=== PATIENT | male | born 1990 | race Caucasian/White ===

== ENCOUNTER 2017-05-12 11:04 | Emergency (ER) | payer MEDICAID ==
[2017-05-12] MEDS ORDERED: ONDANSETRON 4 MG/2 ML VIAL ONE (11:09)
[2017-05-12] MEDS ORDERED: ONDANSETRON 4 MG/2 ML VIAL IVP ONE (11:17)
[2017-05-12] MEDS ORDERED: NS 1,000 ML IV ONE ×2 (11:17→12:48)
[2017-05-12 11:36] VITALS: RESP 16; TEMP 97.7; O2SAT 99
[2017-05-12 12:45] LABS: % IMMATURE GRANULYOCYTES 0.3 % (0.0-1.1); ABSOLUTE IMMATURE GRANULOCYTES 0.04 10^3/uL (0.00-0.10); ADD DIFF? NO; ADD MORPH? NO; ADD SCAN? NO; ATYPICAL LYMPHOCYTE FLAG 10 (0-99); FRAGMENT RBC FLAG 0 (0-99); HEMATOCRIT 48.3 % (40.0-51.0); HEMOGLOBIN 16.8 g/dL (13.7-17.5); LEFT SHIFT FLG 0 (0-99); LIPEMIA HEMOLYSIS FLAG 90 (0-99); MEAN CELL HEMOGLOBIN 32.4 pg (27.9-34.1); MEAN CELL HEMOGLOBIN CONCENTR. 34.8 g/dL (32.4-36.7); MEAN CELL VOLUME 93.1 fL (81.5-99.8); MEAN PLATELET VOLUME 10.2 fL (8.7-11.7); PLATELET CLUMPS FLAG 10 (0-99); PLATELET COUNT 247 10^3/uL (150-400); RED BLOOD CELL COUNT 5.19 10^6/uL (4.40-6.38); RED CELL DISTRIBUTION WIDTH 13.1 % (11.5-15.2)
--- NOTE | 2017-05-12 12:48 | EDPHY ---
General Narrative: CHIEF COMPLAINT: Vomiting, "pissing out of my ass" HISTORY OF PRESENT ILLNESS: Patient complains of 2 days history of vomiting diarrhea. This started abruptly yesterday. He describes it as " I'm pissing out of my ass." This is a clear, watery diarrhea. Multiple episodes per day. The vomiting has improved just prior to arrival. No chest pain or shortness of breath. Does have mild abdominal discomfort. No fever chills. No bloody emesis or stools. No trauma or injury. No history of inflammatory bowel. No other associated complaints or modifying factors. REVIEW OF SYSTEMS: Ten systems reviewed and are negative unless otherwise noted in the HPI PCP: [facility] SPECIALISTS: None PAST MEDICAL HISTORY: None PAST SURGICAL HISTORY: None SOCIAL HISTORY: Currently homeless. Daily smoker. FAMILY HISTORY: Noncontributory EXAMINATION General Appearance: Alert, no distress, unkempt Head: normocephalic, atraumatic Eyes: Pupils equal and round, no conjunctival pallor or injection ENT, Mouth: Mucous membranes moist. Airway patent. Neck: Normal inspection, supple, non-tender Respiratory: Lungs are clear to auscultation. No wheezing, rhonchi or crackles. Cardiovascular: Regular rate and rhythm. No murmur Gastrointestinal: Abdomen is soft and nontender. No tympany. No rigidity. No guarding. No distention. Neurological: A&O, nonfocal, normal gait Skin: Warm and dry, no rash. No petechiae or purpura. Skin is unclean but grossly intact. Extremities: Nontender, no pedal edema Psychiatric: Mood and affect normal DIFFERENTIAL DIAGNOSES: Including but not limited to infectious diarrhea, dehydration, gastritis, enteritis, gastroenteritis, influenza MDM: 12:45 p.m. Nausea vomiting diarrhea. He reports inability to keep anything down by mouth, but he is drinking water while I am in the room. He is asking for more water and liquids. Abdominal exam is benign. Laboratory studies pending. IV fluid infusing. 2:10 p.m. Patient re-evaluated. Laboratory studies within normal limits. He has not vomited since arrival. He has had no bowel movement or diarrhea since time arrival. He is tolerating intake by mouth of water and soda. At this point his vital signs are stable and his abdominal exam remains benign. I do feel he is stable for discharge home. I will provide a prescription for Zofran. I instructed him to continue his intake of fluid and to return to emergency department if no improvement or inability to keep any liquids down for the next 12-24 hours. He is also to return for worsening pain or fever. Discharged home stable condition. SUPERVISION: This patient was independently evaluated without direct involvement of or examination by the attending physician. - History Smoking Status: Current every day smoker - Objective Vital Signs: Initial Vital Signs Temperature (C) 97.7 F 05/12/17 11:04 Heart Rate 85 05/12/17 11:04 Respiratory Rate 16 05/12/17 11:04 Blood Pressure 149/94 H 05/12/17 11:04 O2 Sat (%) 99 05/12/17 11:04 O2 Delivery Mode Room Air Allergies/Adverse Reactions: No Known Allergies Allergy (Verified 05/12/17 11:33) Home Medications: Medication Instructions Recorded Ondansetron Odt [Zofran Odt 4 mg 4 mg PO Q6 PRN #12 tab 05/12/17 (*)] Laboratory Results: Laboratory Results 05/12/17 11:20 05/12/17 11:20 05/12/17 05/12/17 11:20 11:20 WBC 12.29 10^3/uL H 10^3/uL (3.80-9.50) RBC 5.19 10^6/uL 10^6/uL (4.40-6.38) Hgb 16.8 g/dL g/dL (13.7-17.5) Hct 48.3 % % (40.0-51.0) MCV 93.1 fL fL (81.5-99.8) MCH 32.4 pg pg (27.9-34.1) MCHC 34.8 g/dL g/dL (32.4-36.7) RDW 13.1 % % (11.5-15.2) Plt Count 247 10^3/uL 10^3/uL (150-400) MPV 10.2 fL fL (8.7-11.7) Neut % (Auto) 91.2 % H % (39.3-74.2) Lymph % (Auto) 5.2 % L % (15.0-45.0) Cotton % (Auto) 2.7 % L % (4.5-13.0) Eos % (Auto) 0.3 % L % (0.6-7.6) Baso % (Auto) 0.3 % % (0.3-1.7) Nucleat RBC Rel Count 0.0 % % (0.0-0.2) Absolute Neuts (auto) 11.20 10^3/uL H 10^3/uL (1.70-6.50) Absolute Lymphs (auto) 0.64 10^3/uL L 10^3/uL (1.00-3.00) Absolute Monos (auto) 0.33 10^3/uL 10^3/uL (0.30-0.80) Absolute Eos (auto) 0.04 10^3/uL 10^3/uL (0.03-0.40) Absolute Basos (auto) 0.04 10^3/uL 10^3/uL (0.02-0.10) Absolute Nucleated RBC 0.00 10^3/uL 10^3/uL (0-0.01) Immature Gran % 0.3 % % (0.0-1.1) Immature Gran # 0.04 10^3/uL 10^3/uL (0.00-0.10) Sodium 144 mEq/L mEq/L (134-144) Potassium 4.3 mEq/L mEq/L (3.5-5.2) Chloride 105 mEq/L mEq/L (97-110) Carbon Dioxide 25 mEq/l mEq/l (22-31) Anion Gap 14 mEq/L mEq/L (8-16) BUN 14 mg/dL mg/dL (7-23) Creatinine 0.8 mg/dL mg/dL (0.7-1.3) Estimated GFR > 60 Glucose 101 mg/dL H mg/dL (70-100) Calcium 9.7 mg/dL mg/dL (8.5-10.4) Total Bilirubin 1.0 mg/dL mg/dL (0.1-1.4) Conjugated Bilirubin 0.3 mg/dL mg/dL (0.0-0.5) Unconjugated Bilirubin 0.7 mg/dL mg/dL (0.0-1.1) AST 24 IU/L IU/L (17-59) ALT 37 IU/L IU/L (21-72) Alkaline Phosphatase 71 IU/L IU/L (38-126) Total Protein 7.3 g/dL g/dL (6.3-8.2) Albumin 4.2 g/dL g/dL (3.5-5.0) Lipase 102 IU/L IU/L (23-300) Medications Given: Discontinued Medications Sodium Chloride (Ns) 1,000 mls @ 0 mls/hr IV ONCE ONE; Wide Open PRN Reason: Protocol Stop: 05/12/17 11:18 Last Admin: 05/12/17 11:18 Dose: 1,000 mls Sodium Chloride (Ns) 1,000 mls @ 0 mls/hr IV EDNOW ONE; Wide Open PRN Reason: Protocol Stop: 05/12/17 12:49 Last Admin: 05/12/17 12:51 Dose: 1,000 mls Ondansetron HCl (Zofran) 4 mg IVP EDNOW ONE Stop: 05/12/17 11:18 Last Admin: 05/12/17 11:19 Dose: 4 mg Departure - Departure Disposition: Home, Routine, Self-Care Clinical Impression: Nausea vomiting and diarrhea Condition: Good Instructions: Loperamide (By mouth), Gastroenteritis (ED), Acute Nausea and Vomiting (ED) Additional Instructions: 1. Increase fluid intake as discussed 2. Follow up with primary care physician at [facility] 3. ED precautions as discussed Referrals: [facility],. [Clinic] - As per Instructions Prescriptions: Ondansetron Odt [Zofran Odt 4 mg (*)] 4 mg PO Q6 PRN #12 tab PRN Reason: Nausea/Vomiting, Use 1st
[2017-05-12 12:52] LABS: ALANINE AMINOTRANSFERASE 37 IU/L (21-72); ALBUMIN 4.2 g/dL (3.5-5.0); ALKALINE PHOSPHATASE 71 IU/L (38-126); ANION GAP 14 mEq/L (8-16); ASPARTATE AMINOTRANSFERASE 24 IU/L (17-59); BILIRUBIN-CONJUGATED 0.3 mg/dL (0.0-0.5); BILIRUBIN-UNCONJUGATED 0.7 mg/dL (0.0-1.1); CALCIUM 9.7 mg/dL (8.5-10.4); CARBON DIOXIDE 25 mEq/l (22-31); CHLORIDE 105 mEq/L (97-110); CREATININE 0.8 mg/dL (0.7-1.3); GLOMERULAR FILTRATION RATE > 60; GLUCOSE 101 mg/dL (70-100); POTASSIUM 4.3 mEq/L (3.5-5.2); SODIUM 144 mEq/L (134-144); TOTAL PROTEIN 7.3 g/dL (6.3-8.2)
[2017-05-12 14:45] VITALS: BP 106/72; PULSE 95
== END 2017-05-12 14:44 | disposition home or self-care (01) ==
LOC: EDUNIT#
DX: R19.7 Diarrhea, unspecified (principal); R11.2 Nausea with vomiting, unspecified; E86.9 Volume depletion, unspecified; F17.200 Nicotine dependence, unspecified, uncomplicated
CPT/HCPCS: 96374; J2405

== ENCOUNTER 2017-11-24 13:22 | Emergency (ER) | payer MEDICAID ==
[2017-11-24] MEDS ORDERED: NS 1,000 ML IV ONE (13:26)
[2017-11-24] MEDS ORDERED: CLINDAMYCIN 900 MG/DEXTROSE 50 ML IV ONE (13:26)
[2017-11-24] MEDS ORDERED: TDAP ADULT 0.5 ML INJ (BOOSTRIX) IM ONE (13:26)
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
[2017-11-24] MEDS ORDERED: HYDROmorphONE/DILAUDID 1 MG/ML INJ IVP ONE (14:32)
[2017-11-24] MEDS ORDERED: OXYCODONE/APAP 5/325MG PREPACK#4 BTL TAKEHOME ONE (15:19)
[2017-11-24] MEDS ORDERED: OXYCODONE/APAP 5/325 TAB PO ONE (15:19)
[2017-11-24 15:43] VITALS: BP 161/97
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
== END 2017-11-24 15:44 | disposition home or self-care (01) ==
LOC: EDUNIT#
DX: S02.671B Fracture of alveolus of right mandible, initial encounter for open fracture (principal); F17.200 Nicotine dependence, unspecified, uncomplicated; E86.9 Volume depletion, unspecified; Y04.2XXA Assault by strike against or bumped into by another person, initial encounter
CPT/HCPCS: 96365; J1170

== ENCOUNTER 2017-11-26 14:01 | Inpatient (IN) | payer MEDICAID ==
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
[2017-11-26] MEDS ORDERED: NS 1,000 ML IV ONE (14:51)
[2017-11-26] MEDS ORDERED: HYDROmorphONE/DILAUDID 2 MG/ML INJ IVP ONE (14:52)
[2017-11-26] MEDS ORDERED: HYDROmorphONE/DILAUDID 1 MG/ML INJ ONE (14:54)
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
[2017-11-26] MEDS ORDERED: AMPICILLIN/SULBACTAM 3 GM VIAL IV SCH (18:00)
[2017-11-26] MEDS: OXYCODONE/APAP 5/325 TAB PO PRN ×2 (18:37→23:00)
[2017-11-26] MEDS ORDERED: NICOTINE POLACRILEX 2 MG GUM B PRN (18:46)
[2017-11-26] MEDS: IBUPROFEN 800 MG TAB PO SCH ×2 (19:17→23:15)
[2017-11-26] MEDS: AMPICILLIN/SULBACTAM 3 GM in NS 100 ML IV SCH (19:18)
[2017-11-26] MEDS: CHLORHEXIDINE GLUCONATE 15 ML UDL PO SCH (23:00)
[2017-11-27] MEDS: AMPICILLIN/SULBACTAM 3 GM in NS 100 ML IV SCH ×4 (00:33→17:32)
[2017-11-27] MEDS ORDERED: NS 1,000 ML IV SCH (08:00)
[2017-11-27] MEDS: IBUPROFEN 800 MG TAB PO SCH (08:43)
[2017-11-27] MEDS: KETOROLAC 30 MG/1 ML SDV IVP SCH ×3 (09:15→21:34)
[2017-11-27] MEDS: CHLORHEXIDINE GLUCONATE 15 ML UDL PO SCH ×2 (09:15→21:37)
[2017-11-27] MEDS ORDERED: fentaNYL 100 MCG/2 ML INJ ONE ×4 (12:18→15:55)
[2017-11-27] MEDS: fentaNYL 100 MCG/2 ML INJ IVP PRN ×4 (12:25→16:07)
[2017-11-27] MEDS ORDERED: LR 1,000 ML IV SCH (12:30)
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
[2017-11-27] MEDS ORDERED: PROPOFOL/EMULSION 500 MG/50 ML BOTTLE IV ONE ×3 (13:04→14:56)
[2017-11-27] MEDS ORDERED: BUPIVACAINE/EPI 0.5% 30 ML SDV ONE (13:20)
[2017-11-27] MEDS ORDERED: LIDO/EPI 2%** Not for Epidural 20 ML MDV ONE (13:21)
[2017-11-27] MEDS ORDERED: CHLORHEXIDINE GLUCONATE 15 ML UDL ONE (13:38)
[2017-11-27] MEDS ORDERED: LIDOCAINE 2% 5 ML SDV ONE (13:41)
[2017-11-27] MEDS ORDERED: ROCURONIUM 50 MG/5 ML VIAL ONE (13:41)
[2017-11-27] MEDS ORDERED: PHENYLEPHRINE HCL 100 MCG/ML SYR ONE (13:42)
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
[2017-11-27] MEDS ORDERED: SUGAMMADEX SODIUM 200 MG/2 ML VIAL IVP ONE (15:19)
[2017-11-27] MEDS ORDERED: PHENYLEPHRINE 0.5% NASAL 15 ML SPRAY ONE (15:23)
[2017-11-27] MEDS ORDERED: HYDROmorphONE/DILAUDID 1 MG/ML INJ IVP PRN ×2 (15:40→15:58)
--- NOTE | 2017-11-27 15:44 | POSTOPPROG ---
Post Op Note Date of Operation: 11/27/17 Surgeon: Trista Goss Supply Requirements Officer: n/a Anesthesiologist: Cisco Walker MD Anesthesia: GET(General Endotracheal) Pre-op Diagnosis: right mandibular body fracture, L SC fx Post-op Diagnosis: same Indication: open fracture, malocclusion Procedure: ORIF of R mandibular fx, extraction of teeth #27, 30 Findings: open and displaced fracture Inf/Abcess present in the surg proc area at time of surgery?: No Depth: Deep Incisional (Fascial) EBL: 50-100 Complications: n/a Drains: Other (none)
--- NOTE | 2017-11-27 15:55 | POSTANESTH ---
Post Anesthetic Evaluation Cardiovascular Status: Normal, Stable, Similar to Pre-Op Cond Respiratory Status: Normal, Stable, Similar to Pre-op Cond. Level of Consciousness/Mental Status: Can Participate in Eval, Alert and Oriented Pain Control: Adequate, Prn Tx Ordered Nausea/Vomiting Control: Adequate, Prn Tx Ordered Complications Possibly Related to Anesthesia: None Noted
[2017-11-27] MEDS ORDERED: DEXAMETHASONE 4 MG/ML VIAL IVP PRN (15:58)
[2017-11-27] MEDS ORDERED: LR 500 ML IV PRN (15:58)
[2017-11-27] MEDS ORDERED: NALOXONE HCL 0.4 MG/ML INJ IVP PRN (15:58)
[2017-11-27] MEDS ORDERED: PHENYLEPHRINE HCL 100 MCG/ML SYR IVP PRN (15:58)
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
[2017-11-27] MEDS: OXYCODONE/APAP 5/325 TAB PO PRN ×2 (17:32→21:43)
[2017-11-27] MEDS: BACITRACIN OINTMENT 1 PACKET TP SCH (21:36)
[2017-11-28] MEDS: AMPICILLIN/SULBACTAM 3 GM in NS 100 ML IV SCH ×3 (00:19→12:25)
[2017-11-28] MEDS: KETOROLAC 30 MG/1 ML SDV IVP SCH (06:09)
[2017-11-28] MEDS: OXYCODONE/APAP 5/325 TAB PO PRN (06:13)
[2017-11-28 07:57] VITALS: BP 121/59
[2017-11-28] MEDS: CHLORHEXIDINE GLUCONATE 15 ML UDL PO SCH (09:44)
[2017-11-28] MEDS: BACITRACIN OINTMENT 1 PACKET TP SCH (09:44)
--- NOTE | 2017-11-28 09:57 | ASMTLACE ---
LACE Length of stay for Answers: 1 day current admission Acuity / Level of Answers: Yes Care: Did the patient have an inpatient admission? # of Emergency department Answers: 1-2 visits in the last 6 months Social determinants Answers: History of substance abuse (ETOH, street drugs, prescription drugs, etc.) Homelessness (street, penitentiary) Score: 11 Date Signed: 11/28/2017 09:57 AM Electronically Signed By:Radha Way RN
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
[2017-11-28] MEDS ORDERED: OXYCODONE/APAP 5/325 TAB PO PRN (10:59)
--- NOTE | 2017-11-28 12:32 | ASMTCMCOM ---
CM Note CM Note Notes: D/w , pt just had mandubular surgery. She has written 2 RXs, CM tried to [facility] but pharmacy cannot fill, CM notified RN. RN contacted MD, will give pt RXs to fill on his own, pt declined to get last dose of abx because he wants to leave. CM spoke with pt, he declines detention bed or the need to follow up at the [facility]. CM will call for Medicaid transport when pt is ready. DC Plan: Indepedent Date Signed: 11/28/2017 12:31 PM Electronically Signed By:Radha Way RN
--- NOTE | 2017-11-28 12:34 | ASMTCMCOM ---
CM Note CM Note Notes: CM called for Medicaid transport, will arrive at 1pm, RN notified. Auth # [id number] Date Signed: 11/28/2017 12:33 PM Electronically Signed By:Radha Way RN
== END 2017-11-28 12:39 | disposition home or self-care (01) | DRG 92 ==
LOC: F3E 15:44 → OBSVTOIN 11-27 14:52
PROVIDERS: ADMIT Dentist Oral and Maxillofacial Surgery; ATTEND Dentist Oral and Maxillofacial Surgery
DX: S02.601A Fracture of unspecified part of body of right mandible, initial encounter for closed fracture (principal); S02.622A Fracture of subcondylar process of left mandible, initial encounter for closed fracture; Z59.0 Homelessness; Z72.0 Tobacco use; Y09 Assault by unspecified means; Y92.9 Unspecified place or not applicable
CPT/HCPCS: 96374; C1713; J0295; J1170; J1885; J2370; J2704; J3010

== ENCOUNTER 2017-12-22 00:48 | Inpatient (IN) | payer MEDICAID ==
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
[2017-12-22 01:57] LABS: PLATELET COUNT 220 10^3/uL (150-400)
[2017-12-22 02:20] LABS: INR 1.04 (0.83-1.16); PROTIME(PATIENT) 13.8 SEC (12.0-15.0)
[2017-12-22] MEDS ORDERED: ACETAMINOPHEN 500 MG TAB ONE (02:21)
[2017-12-22] MEDS ORDERED: ACETAMINOPHEN 500 MG TAB PO ONE (02:22)
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
[2017-12-22 08:31] VITALS: BP 109/56
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
[2017-12-22] MEDS ORDERED: IBUPROFEN 600 MG TAB PO PRN (09:43)
[2017-12-22] MEDS ORDERED: ACETAMINOPHEN 325 MG TAB PO PRN (09:43)
[2017-12-22] MEDS ORDERED: NALOXONE HCL 0.4 MG/ML INJ IVP PRN (09:43)
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
== END 2017-12-22 14:00 | disposition home or self-care (01) | DRG 57 ==
LOC: EDUNIT# → F2N 04:17
PROVIDERS: ADMIT Surgery; ATTEND Surgery
PROC: 0HQ0XZZ Repair Scalp Skin, External Approach (ICD-10-PCS; principal; 2017-12-22)
DX: S06.300A Unspecified focal traumatic brain injury without loss of consciousness, initial encounter (principal); F10.129 Alcohol abuse with intoxication, unspecified; S01.01XA Laceration without foreign body of scalp, initial encounter; S02.11GA Other fracture of occiput, right side, initial encounter for closed fracture; Y90.6 Blood alcohol level of 120-199 mg/100 ml; Y04.0XXA Assault by unarmed brawl or fight, initial encounter; Z72.0 Tobacco use
CPT/HCPCS: 92523-GN; G0480